=== PATIENT | female | born 1965 | race Caucasian/White ===

== ENCOUNTER 2017-06-09 11:00 | Inpatient (IN) | payer OTHER ==
[2017-06-13 08:40] VITALS: BMI 51.7
[2017-06-14] MEDS ORDERED: DEXAMETHASONE SOD PHOSPHATE/PF 10 MG/ML SDV ONE (10:30)
[2017-06-14] MEDS ORDERED: BUPIVACAINE HCL/PF 0.25% (2.5MG/ML) 10 ML VIAL ONE (10:30)
[2017-06-14] MEDS ORDERED: MIDAZOLAM HCL 2 MG/2 ML SINGLE DOSE VIAL ONE ×2 (10:31)
[2017-06-14] MEDS ORDERED: oxyCODONE HCL 5 MG TABLET PO PRN ×2 (10:59)
[2017-06-14] MEDS ORDERED: ONDANSETRON 4 MG/2 ML VIAL IVPUSH PRN (10:59)
[2017-06-14] MEDS ORDERED: LACTATED RINGERS SOLUTION 1,000 ML IV SCH (11:00)
--- NOTE | 2017-06-14 11:21 | HP ---
History & Physical Update - History History: No Change - Physical Physical: No Change - Assessment Assessment: No Change - Plan Plan: No Change (Laparoscopic possible open vertical sleeve gastrectomy, possible liver biopsy, upper endoscopy)
[2017-06-14] MEDS ORDERED: fentaNYL CITRATE 250 MCG/5 ML VIAL ONE ×2 (12:07→12:54)
[2017-06-14] MEDS ORDERED: ROCURONIUM BROMIDE 50 MG/5 ML VIAL ONE (12:08)
[2017-06-14] MEDS ORDERED: PROPOFOL 20 ML ONE (12:08)
[2017-06-14] MEDS ORDERED: ceFAZolin SODIUM 1 GM VIAL ONE (12:17)
[2017-06-14] MEDS ORDERED: DEXAMETHASONE SOD PHOSPHATE 4 MG/1 ML VIAL ONE (12:17)
[2017-06-14] MEDS ORDERED: ceFAZolin SODIUM 1 GM VIAL IVPB ONE (12:19)
[2017-06-14] MEDS ORDERED: NEOSTIGMINE METHYLSULFATE 0.5 MG/ML - 10 ML MDV ONE (13:44)
[2017-06-14] MEDS ORDERED: GLYCOPYRROLATE 0.2 MG/1 ML VIAL ONE ×2 (13:45→13:46)
[2017-06-14] MEDS ORDERED: BUPIVACAINE HCL/PF 0.5% (5MG/ML) 10 ML VIAL IJ ONE ×2 (13:58)
--- NOTE | 2017-06-14 14:11 | OP ---
Operative Note - Note: Operative Date: 06/14/17 Pre-Operative Diagnosis: Morbid obesity Operation: Laparoscopic vertical sleeve gastrectomy, wedge liver biopsy, EGD Post-Operative Diagnosis: Other (Morbid obesity, hepatomegaly) Surgeon: Fahad Ordaz Jackhammer Operator: Michelle Benitez Anesthesia: General Specimens Removed: Greater curvature of stomach. Liver biopsy Estimated Blood Loss (mls): 30 Drains & Tubes with Location: 36 Fr bougie Operative Report Dictated: Yes
[2017-06-14] MEDS ORDERED: SODIUM CHLORIDE 1,000 ML IV SCH (14:15)
--- NOTE | 2017-06-14 14:23 | HP ---
Admitting History and Physical - Admission Chief Complaint: Morbid obesity History Source: Patient Limitations to Obtaining History: No Limitations - Past Medical History Cardiovascular: Yes: HTN Gastrointestinal: Yes: Other (Morbid obesity) ...LMP: 05/23/17 Endocrine: Yes: Diabetes Mellitus - Smoking History Smoking history: Former smoker Have you smoked in the past 12 months: No Aproximately how many cigarettes per day: 40 If you are a former smoker, when did you quit?: 1999 - Alcohol/Substance Use Hx Alcohol Use: Yes (RARE) Home Medications - Allergies Allergies/Adverse Reactions: Allergies Allergy/AdvReac Type Severity Reaction Status Date / Time No Known Allergies Allergy Unverified 01/31/14 09:02 - Home Medications Home Medications: Ambulatory Orders Cholecalciferol (Vitamin D3) [Vitamin D3] 2,000 unit PO DAILY capsule 03/09/15 Clonazepam [Klonopin] 1 mg PO PRN PRN tablet 12/24/16 Acetaminophen [Tylenol] 325 mg PO PRN 06/13/17 Famotidine [Pepcid] 20 mg PO BID #60 tablet 06/14/17 Oxycodone HCl/Acetaminophen [Percocet 5-325 mg Tablet] 1 - 2 tab PO Q6H #28 tab MDD 4 06/14/17 Family Disease History - Family Disease History Family History: Unremarkable Review of Systems - Review of Systems Constitutional: denies: Chills, Fever Cardiovascular: reports: No Symptoms Respiratory: reports: No Symptoms Gastrointestinal: reports: No Symptoms Neurological: denies: Change in LOC Pain Intensity: 0 Physical Examination Vital Signs: Vital Signs Temperature 97.9 F 06/14/17 10:44 Pulse Rate 90 06/14/17 10:44 Respiratory Rate 20 06/14/17 10:44 Blood Pressure 117/64 06/14/17 10:44 O2 Sat by Pulse Oximetry (%) 95 06/14/17 10:44 Constitutional: Yes: Calm Neck: Yes: WNL Cardiovascular: Yes: WNL Respiratory: Yes: Regular Gastrointestinal: Yes: Soft, Abdomen, Obese Problem List - Problems (1) Body mass index (BMI) of 50.0 to 59.9 in adult Code(s): Z68.43 - BODY MASS INDEX (BMI) 50-59.9 , ADULT (2) Morbid obesity due to excess calories Code(s): E66.01 - MORBID (SEVERE) OBESITY DUE TO EXCESS CALORIES Assessment/Plan Laparoscopic possible open vertical sleeve gastrectomy, posisble liver biopsy, EGD
--- NOTE | 2017-06-14 14:47 | SURG ---
Surgery Director Internal Audit Note Director Internal Audit: Michelle Benitez PA-C Date of Service: 06/14/17 Diagnosis: morbid obesity Procedure: Laparoscopic vertical sleeve gastrectomy, wedge liver biopsy, EGD I was present for the entirety of the operative procedure. For further detail, please refer to operative report. Visit type - Case Type Case Type: Scheduled Admission - Emergency Emergency Visit: No - New patient This patient is new to me today: Yes Date on this admission: 06/14/17
[2017-06-14] MEDS ORDERED: FAMOTIDINE 20 MG PREMIXED IVPB IVPB ONE (14:50)
[2017-06-14] MEDS ORDERED: METOCLOPRAMIDE HCL INJECTION 10 MG/2 ML VIAL IVPUSH ONE (15:05)
[2017-06-14 15:38] LABS: HEMATOCRIT 42.3 % (32.4-45.2); HEMOGLOBIN 14.4 GM/dL (10.7-15.3); MCHC 33.9 g/dl (32.0-36.0); MEAN CELL VOLUME 91.5 fl (80-96); MEAN PLT VOLUME 9.4 fl (7.5-11.1); PLATELET COUNT 232 K/MM3 (134-434); RBC 4.63 M/mm3 (3.60-5.2); RDW 13.4 % (11.6-15.6); WHITE BLOOD COUNT 10.6 K/mm3 (4.0-10.0)
[2017-06-14] MEDS ORDERED: ACETAMINOPHEN 1000 MG/100 ML VIAL (NON FORMULARY) IVPB ONE (15:43)
[2017-06-14] MEDS ORDERED: ONDANSETRON 4 MG/2 ML VIAL IVPUSH ONE (15:44)
[2017-06-14 15:59] LABS: ALBUMIN 3.9 g/dl (3.4-5.0); ANION GAP 15 (8-16); BILIRUBIN,TOTAL 0.9 mg/dL (0.2-1.0); BLOOD UREA NITROGEN 12 mg/dL (7-18); CALCIUM 8.4 mg/dL (8.5-10.1); CHLORIDE 103 mmol/L (98-107); CO2 20 mmol/L (21-32); CREATININE 1.3 mg/dL (0.55-1.02); GLUCOSE,RANDOM 129 mg/dL (74-106); SGPT/ALT 39 U/L (12-78); SODIUM 138 mmol/L (136-145); TOT PROT 7.5 g/dl (6.4-8.2)
[2017-06-14 16:00] LABS: ALK PHOS 49 U/L (45-117)
[2017-06-14 16:45] LABS: POTASSIUM 4.3 mmol/L (3.5-5.1); SGOT/AST 45 U/L (15-37)
[2017-06-14] MEDS: METOCLOPRAMIDE HCL INJECTION 10 MG/2 ML VIAL IVPUSH SCH ×2 (17:11→21:06)
[2017-06-14] MEDS: ACETAMINOPHEN 1000 MG/100 ML VIAL (NON FORMULARY) IVPB SCH ×2 (17:11→22:47)
[2017-06-14] MEDS: ONDANSETRON 4 MG/2 ML VIAL IVPUSH SCH ×3 (17:12→22:43)
--- NOTE | 2017-06-14 17:28 | SPEC ---
DATE OF OPERATION: 06/14/2017 SURGEON: Deedee Ordaz M.D. METER AND REGULATOR SHOP SUPERVISOR: Candi Ham PREOPERATIVE DIAGNOSIS: 1. Morbid obesity. 2. Body mass index 51.7. 3. Diabetes mellitus. 4. Depression. 5. Hypertension. POSTOPERATIVE DIAGNOSIS: 1. Morbid obesity. 2. Body mass index 51.7. 3. Diabetes mellitus. 4. Depression. 5. Hypertension. 6. Hepatomegaly. PROCEDURES: 1. Laparoscopic vertical sleeve gastrectomy. 2. Laparoscopic wedge liver biopsy. 3. Esophagogastroduodenoscopy/upper endoscopy. SPECIMENS: 1. Greater curvature of the stomach. 2. Wedge liver biopsy. ESTIMATED BLOOD LOSS: 30 mL. DRAINS: None. ANESTHESIA: GET. BOUGIE SIZE: 36 Belarusian REASON FOR THE PROCEDURE: This is a 52-year-old female presents for weight loss options. After describing different options, she has decided to proceed with a laparoscopic, possible open vertical sleeve gastrectomy, possible liver biopsy and upper endoscopy. RISKS AND BENEFITS: After describing the different options for weight loss management, the patient decided to proceed with a laparoscopic, possible open vertical sleeve gastrectomy. The patient was seen by the respective subspecialties and cleared for surgery. The risks and benefits of the procedure were explained. These included bleeding, infection, hernia, FL, DVT, PE, injury to surrounding structures including the liver, colon, bowel, spleen, esophagus, vessel injury, nerve injury, weight regain, gastric leak, staple line leak, sleeve leak, obstruction, vitamin deficiency, hair loss and as some of the possible complications. The patient understood and signed informed consent. DESCRIPTION OF PROCEDURE: The patient was placed supine on the operating room table. The patient underwent general endotracheal intubation. A Duckworth catheter was inserted. The arms were brought out at 90 degrees and secured. A footboard was placed and the legs were secured laterally with padding. The abdomen was prepped and draped in the usual sterile fashion. A timeout was performed. An incision was made in the left upper quadrant and a Veress needle inserted. Pneumoperitoneum was established. Subsequently, the Veress needle was removed and a 12-mm trocar was placed. The laparoscopic camera was then inserted and inspection of the abdominal cavity was performed. An incision was then made in the supraumbilical area and a 15-mm trocar was placed under direct visualization. A 5-mm trocar was then placed in the right upper quadrant and a 5-mm trocar was placed below the left subcostal margin. A stab wound was made in the subxiphoid area and a Harini clamp inserted and removed to dilate the tract. A Emmy liver retractor was inserted. The post was secured at the bedside by the nursing staff. The patient was placed in steep reverse Trendelenburg position and the Emmy liver retractor was used to secure the liver towards the anterior abdominal wall. The pylorus was identified and 6 cm proximal to it, the lesser sac was entered using the LigaSure device. All lateral attachments to the greater curvature of the stomach, including the short gastric vessels, were ligated using the LigaSure device toward the gastrosplenic and gastrophrenic ligaments. Once this was done in its entirety, it was confirmed that all tubes within the nasal or oropharyngeal cavity, including a temperature probe, was removed by Anesthesia. The bougie was then inserted by Anesthesia. Transection of the stomach was then begun staying adjacent to the bougie but away from the angularis. Transection of the stomach was performed near the portion of the stomach where the lesser sac was entered. Two laparoscopic Endo-HA black melania were used at this location. Laparoscopic Endo HA purple staple loads were then used for the remainder of the transection until the greater curvature of the stomach was fully transected. This was done staying close to the bougie. Care was taken to stay away from the angle of His cephalad. The staple line was then inspected. Hemostasis was identified. A leak test was then performed. It was clamped distally to the staple line. Irrigation solution was placed in the left upper quadrant and air was insufflated by Anesthesia into the sleeve. No leaks were identified. No obstruction was identified. This was done through the entirety of the staple line. At this point, the irrigation solution was suctioned and again, hemostasis was noted. A wedge liver biopsy was then performed. The left lobe of the liver was identified and a portion of the edge was grasped. Using electrocautery, a wedge of the liver was excised. This was removed and sent off the field as specimen. Hemostasis at the site of the wedge liver biopsy was attained using electrocautery. The 15-mm supraumbilical trocar was then removed and the greater curvature specimen removed from the site using a sponge stick zamora. The specimen was inspected and a Veress needle inserted. The specimen insufflated adequately and no leak was identified. The staple line was noted to be intact. A Viraj-Luly device was then used to temporarily close the fascia with a 0 Vicryl suture at the site. The 15-mm trocar was then reinserted and the 12-mm trocar in the left upper quadrant was removed. The fascia at this site was then closed using the Viraj-Luly device with a 0 Vicryl suture. Again, hemostasis was noted. The Emmy liver retractor was then removed under direct visualization. Pneumoperitoneum was desufflated and the fascial sutures were secured. Hemostasis was noted at all incision sites and Marcaine was injected at all incision sites. All incision sites were closed using 4-0 Biosyn. Sterile dressings were applied. The patient tolerated the procedure well and was transferred to the recovery room in stable condition with the Duckworth catheter intact. The patient was transferred to telemetry for further monitoring. ADDENDUM: An EGD/upper endoscopy was performed to further evaluate for leak and/or obstruction. The endoscope was placed inside the patient's mouth, and the entirety of the esophagus, GE junction, gastric pouch, and staple line were inspected. Hemostasis was noted. No leak or obstruction was noted. The stomach was suctioned and endoscope removed. Patient tolerated the procedure well, transferred to recovery room in stable condition. DEEDEE ORDAZ M.D. [id number]
[2017-06-14] MEDS: INSULIN SLIDING SCALE (NOVOLOG) 1 VIAL SQ SCH (17:38)
[2017-06-14] MEDS: MORPHINE SULFATE 10 MG/1 ML *VIAL IVPUSH PRN ×2 (17:45→22:15)
[2017-06-14] MEDS ORDERED: PT OWN MED DRAWER 7, Y5N ONE (21:02)
[2017-06-14] MEDS: ENOXAPARIN NA (PORCINE) 40 MG/0.4 ML DISP.SYRIN SQ SCH (21:06)
[2017-06-14] MEDS: FAMOTIDINE 20 MG/50 ML IVPB 20 MG/50 ML MG IVPB SCH (21:08)
[2017-06-15] MEDS: MORPHINE SULFATE 10 MG/1 ML *VIAL IVPUSH PRN ×2 (03:02→21:08)
[2017-06-15] MEDS: ONDANSETRON 4 MG/2 ML VIAL IVPUSH SCH ×6 (03:02→22:08)
[2017-06-15] MEDS: METOCLOPRAMIDE HCL INJECTION 10 MG/2 ML VIAL IVPUSH SCH ×4 (03:02→21:07)
[2017-06-15] MEDS: ACETAMINOPHEN 1000 MG/100 ML VIAL (NON FORMULARY) IVPB SCH (06:56)
[2017-06-15] MEDS: INSULIN SLIDING SCALE (NOVOLOG) 1 VIAL SQ SCH ×3 (07:02→16:21)
[2017-06-15 08:13] LABS: HEMATOCRIT 38.7 % (32.4-45.2); HEMOGLOBIN 13.1 GM/dL (10.7-15.3); MCHC 33.8 g/dl (32.0-36.0); MEAN CELL VOLUME 91.9 fl (80-96); MEAN PLT VOLUME 9.7 fl (7.5-11.1); PLATELET COUNT 199 K/MM3 (134-434); RBC 4.22 M/mm3 (3.60-5.2); RDW 13.2 % (11.6-15.6); WHITE BLOOD COUNT 11.7 K/mm3 (4.0-10.0)
[2017-06-15 08:35] LABS: CHLORIDE 106 mmol/L (98-107); POTASSIUM 4.4 mmol/L (3.5-5.1); SODIUM 140 mmol/L (136-145)
[2017-06-15 08:44] LABS: ALBUMIN 3.2 g/dl (3.4-5.0); ALK PHOS 40 U/L (45-117); ANION GAP 15 (8-16); BILIRUBIN,TOTAL 0.9 mg/dL (0.2-1.0); BLOOD UREA NITROGEN 11 mg/dL (7-18); CALCIUM 8.2 mg/dL (8.5-10.1); CO2 19 mmol/L (21-32); CREATININE 0.9 mg/dL (0.55-1.02); GLUCOSE,RANDOM 93 mg/dL (74-106); SGOT/AST 45 U/L (15-37); SGPT/ALT 41 U/L (12-78); TOT PROT 6.6 g/dl (6.4-8.2)
--- NOTE | 2017-06-15 09:08 | PN ---
Progress Note (short form) - Note Progress Note: POD#1 Pt states that she is feeling much better. Yesterday she had some pain with spitting up blood. This has improved and she had one episode of coughing up a little blood this am. Pain is improved. Pt oob and abmulated to the restroom several times. Vital Signs Period Temp Pulse Resp BP Sys/Verdin Pulse Ox Last 24 Hr 97.9 F-98.4 F 18-94 16-20 114-156/64-100 91-97 GEN: Appears comfortable CV: RRR Lungs: CTA b/l ABD: soft, non-distended, inc tenderness. Inc c/d/i LE: no calf swelling or tenderness noted. SCDs in place b/l CBC, BMP 18 06:30 18 06:30 Laboratory Tests 18 06/14/18 06/14/17 15:00 15:00 17:34 WBC 10.6 H Hgb 14.4 Hct 42.3 Plt Count 232 Sodium 138 Potassium 4.3 Chloride 103 Carbon Dioxide 20 L Anion Gap 15 BUN 12 Creatinine 1.3 H POC Glucometer 160 06/15/17 07:01 WBC Hgb Hct Plt Count Sodium Potassium Chloride Carbon Dioxide Anion Gap BUN Creatinine POC Glucometer 102 A/P; 52 yo female s/p lap vertical sleeve, POD#1 Plan for UGI series today Continue OOB/ambulate DVT ppx with SCDs <Cathy Bowens - Last Filed: 06/15/17 09:08> - Note Progress Note: Agree POD 1 Pain controlled Abd soft UGI: no leak/obstruction Clears Ambulate <Fahad Ordaz - Last Filed: 06/15/17 15:47> Problem List - Problems (1) Body mass index (BMI) of 50.0 to 59.9 in adult Code(s): Z68.43 - BODY MASS INDEX (BMI) 50-59.9 , ADULT (2) Morbid obesity due to excess calories Code(s): E66.01 - MORBID (SEVERE) OBESITY DUE TO EXCESS CALORIES <Fahad Ordaz - Last Filed: 06/15/17 15:47>
[2017-06-15] MEDS: FAMOTIDINE 20 MG/50 ML IVPB 20 MG/50 ML MG IVPB SCH ×2 (09:32→21:07)
[2017-06-15] MEDS: ENOXAPARIN NA (PORCINE) 40 MG/0.4 ML DISP.SYRIN SQ SCH ×2 (09:33→21:07)
--- NOTE | 2017-06-15 12:43 | PATH ---
Surgical Pathology Report Patient Name: REJI MON [facility]. Rec. #: [id number] /Age/Gender: 1965 (Age: 52) / F Account: [id number] Location: 4 SO PEDS/ADOL Taken: 06/14/2017 Received: 06/14/2017 Reported: 06/15/2017 Physicians: Fahad Ordaz M.D. Specimen(s) Received A: GREATER CURVATURE STOMACH B: LIVER BIOPSY Clinical History Morbid obesity (severe) due to excess calories Final Diagnosis A. STOMACH, GREATER CURVATURE, LAPAROSCOPIC VERTICAL SLEEVE GASTRECTOMY: PORTION OF STOMACH WITH MILD CHRONIC GASTRITIS. IMMUNOHISTOCHEMICAL STAIN FOR H. PYLORI IS NEGATIVE. B. LIVER, BIOPSY: LIVER PARENCHYMA WITH MODERATE STEATOSIS (~50%). NO INCREASE IN IRON AND FIBROSIS ON PERFORMED SPECIAL STAINS (IRON AND TRICHROME). Electronically Signed Marcie Vallejo M.D. Gross Description A. Received in formalin, labeled "greater curvature of stomach," is a 90 gram, 18.0 x 3.3 x 3.0 cm. portion of stomach with a stapled margin of resection. The serosa is gil-howard with minimal attached fat. The mucosa is gil-pink with normal folds. No mucosal masses are identified. Master Planner sections are submitted in one cassette. B. Received in formalin labeled "liver biopsy," is a 2.1 x 1.0 x 0.9 cm gil, irregular portion of soft tissue, consistent with a liver biopsy. The specimen is sectioned and entirely submitted in one cassette. /06/14/2017 saudi06/14/2017
[2017-06-15] MEDS: SODIUM CHLORIDE 1,000 ML IV SCH (14:55)
[2017-06-16] MEDS: ONDANSETRON 4 MG/2 ML VIAL IVPUSH SCH ×4 (01:50→14:07)
[2017-06-16] MEDS: METOCLOPRAMIDE HCL INJECTION 10 MG/2 ML VIAL IVPUSH SCH ×3 (02:36→14:50)
[2017-06-16] MEDS: oxyCODONE HCL 5 MG TABLET PO PRN ×3 (03:07→12:36)
[2017-06-16] MEDS: INSULIN SLIDING SCALE (NOVOLOG) 1 VIAL SQ SCH ×2 (06:34→12:00)
[2017-06-16] MEDS: SODIUM CHLORIDE 1,000 ML IV SCH ×2 (06:39→12:37)
[2017-06-16] MEDS: FAMOTIDINE 20 MG/50 ML IVPB 20 MG/50 ML MG IVPB SCH (09:24)
[2017-06-16] MEDS: ENOXAPARIN NA (PORCINE) 40 MG/0.4 ML DISP.SYRIN SQ SCH (09:24)
[2017-06-16] MEDS ORDERED: amLODIPine BESYLATE 5 MG TABLET (FP) PO SCH (12:15)
[2017-06-16 13:32] VITALS: BP 122/54; PULSE 78; TEMP 98.2
[2017-06-16] MEDS ORDERED: metFORMIN HCL 500 MG TABLET (FP) PO SCH (16:30)
== END 2017-06-16 15:09 | disposition home or self-care (01) | DRG 403 ==
LOC: EDSTATUS 11:00 → JSAMEDAYSX 06-14 09:57 → J4S 06-14 16:56
PROVIDERS: ADMIT Surgery; ATTEND Surgery
PROC: 0DB64Z3 Excision of Stomach, Percutaneous Endoscopic Approach, Vertical (ICD-10-PCS; principal; 2017-06-14 12:00)
PROC: 0DJ08ZZ Inspection of Upper Intestinal Tract, Via Natural or Artificial Opening Endoscopic (ICD-10-PCS; 2017-06-14 12:00)
PROC: 0FB24ZX Excision of Left Lobe Liver, Percutaneous Endoscopic Approach, Diagnostic (ICD-10-PCS; 2017-06-14 12:00)
DX: E66.01 Morbid (severe) obesity due to excess calories (principal); Z68.43 Body mass index [BMI] 50.0-59.9, adult; E11.9 Type 2 diabetes mellitus without complications; I10 Essential (primary) hypertension; F32.9 Major depressive disorder, single episode, unspecified; R16.0 Hepatomegaly, not elsewhere classified
CPT/HCPCS: 36415; 74241-TC-FY; 80053; 82962; 84703; 85027; 86850; 86900; 86901; 88307-TC; 94010; 94760; J0131; J7030

== ENCOUNTER 2017-12-20 06:18 | Day surgery (SDC) | payer OTHER ==
[2017-11-28 12:55] VITALS: BMI 43.8
[2017-12-20] MEDS ORDERED: TROPICAMIDE 1% OPHTH SOLN 15 ML BOTTLE ONE (07:06)
[2017-12-20] MEDS ORDERED: GENTAMICIN SULFATE 0.3% OPHTHALMIC (EYE DROPS) 5ML BOTTLE ONE (07:06)
[2017-12-20] MEDS ORDERED: PHENYLEPHRINE 2.5% OPHTH SOLN 15 ML BOTTLE ONE (07:06)
[2017-12-20] MEDS ORDERED: KETOROLAC TROMETHAMINE 0.5% EYE DROP 1 DROP DROPS ONE (07:06)
[2017-12-20] MEDS ORDERED: CYCLOPENTOLATE HCL 1% OPHTH SOLN 2 ML BOTTLE ONE (07:06)
[2017-12-20] MEDS ORDERED: TROPICAMIDE 1% OPHTH SOLN 15 ML BOTTLE OD ONE ×5 (07:15→07:35)
[2017-12-20] MEDS ORDERED: PHENYLEPHRINE 2.5% OPHTH SOLN 15 ML BOTTLE OD ONE ×5 (07:15→07:35)
[2017-12-20] MEDS: CYCLOPENTOLATE HCL 1% OPHTH SOLN 2 ML BOTTLE OD SCH ×5 (07:15→07:35)
[2017-12-20] MEDS ORDERED: KETOROLAC TROMETHAMINE 0.5% EYE DROP 1 DROP DROPS OD ONE ×5 (07:15→07:35)
[2017-12-20] MEDS ORDERED: GENTAMICIN SULFATE 0.3% OPHTHALMIC (EYE DROPS) 5ML BOTTLE OD ONE ×4 (07:20→07:35)
[2017-12-20] MEDS ORDERED: BACITRACIN/POLYMYXIN OPH OINT 3.5 GM TUBE ONE (07:25)
[2017-12-20] MEDS ORDERED: BETAXOLOL HCL 0.25% OPHTHALMIC 10 ML DROPSBTL ONE (07:25)
[2017-12-20] MEDS ORDERED: EPI-SHUGARCAINE (EPINEPHRINE 0.025% & LIDOCAINE-PF 0.75%) 4ML ONE ×2 (07:26→07:39)
[2017-12-20] MEDS ORDERED: NEO/POLYMYX B SULF/DEXAMETH OPHTHALMIC 5ML BOTTLE ONE (07:26)
[2017-12-20] MEDS ORDERED: POVIDONE-IODINE 5% OPHTHALMIC PREP 30 ML SOLUTION ONE (07:26)
[2017-12-20] MEDS ORDERED: ACETYLCHOLINE 1:100 INTRA-OCUL 20 MG/2 ML KIT ONE (07:26)
[2017-12-20] MEDS ORDERED: TETRACAINE 0.5% OPHTH SOLN 2 ML BOTTLE ONE (07:26)
[2017-12-20] MEDS ORDERED: EPINEPHrine/PF 1 MG/1 ML (1:1,000) AMPULE ONE ×2 (07:27→07:31)
[2017-12-20] MEDS ORDERED: LIDOCAINE HCL 4% PRESERVE-FREE 5 ML AMP ONE (07:39)
[2017-12-20] MEDS ORDERED: TROPICAMIDE 1% OPHTH SOLN 15 ML BOTTLE OD SCH (08:00)
[2017-12-20] MEDS ORDERED: GENTAMICIN SULFATE 0.3% OPHTHALMIC (EYE DROPS) 5ML BOTTLE OD SCH (08:00)
[2017-12-20] MEDS ORDERED: PHENYLEPHRINE 2.5% OPHTH SOLN 15 ML BOTTLE OD SCH (08:00)
[2017-12-20] MEDS ORDERED: KETOROLAC TROMETHAMINE 0.5% EYE DROP 1 DROP DROPS OD SCH (08:00)
[2017-12-20] MEDS ORDERED: SUCCINYLCHOLINE CHLORIDE 200 MG/10 ML VIAL ONE (08:18)
[2017-12-20] MEDS ORDERED: MIDAZOLAM HCL 2 MG/2 ML SINGLE DOSE VIAL ONE (08:18)
[2017-12-20] MEDS ORDERED: ACETAMINOPHEN 325 MG TABLET (FP) PO PRN ×2 (09:03→09:17)
[2017-12-20] MEDS ORDERED: ONDANSETRON 4 MG/2 ML VIAL IVPUSH PRN (09:03)
[2017-12-20] MEDS ORDERED: LACTATED RINGERS SOLUTION 1,000 ML IV SCH (09:15)
[2017-12-20 09:55] VITALS: TEMP 97.7
--- NOTE | 2017-12-20 09:59 | OP ---
DATE OF OPERATION: 12/20/2017 PREOPERATIVE DIAGNOSIS: Cataract, right eye. POSTOPERATIVE DIAGNOSIS: Cataract, right eye. PROCEDURE: Cataract extraction via phacoemulsification with insertion of posterior chamber lens implant, right eye, Toric lens. ANESTHESIA: Topical with sedation. SURGEON: Carroll Herrera MD FIBERGLASS FINISHER: Janet Kumar MD COMPLICATIONS: None. SPECIMENS: None. ESTIMATED BLOOD LOSS: Less than 1 mL. PROCEDURE: The patient was identified in the holding area. After all risks, benefits, and alternatives were explained to the patient and informed consent was obtained, the patient then entered the operating room on an eye stretcher. After a formal timeout was performed, topical tetracaine eye drops were instilled onto the right eye. The patient then was instructed to sit up and using a leveling marker, the cardinal and axes for the Toric lens were marked on the cornea. The patient was then instructed to lay back down. Then, the right eye was prepped and draped in the usual sterile fashion. An eyelid speculum was placed beneath the eyelids of the right eye. Then, the axis of the stigmatism was marked, noted to be 105 degrees. Then, once the axis of the stigmatism was marked with the marking pen and Toric markers, a superotemporal incision was created using a 15-degree blade. Then, intracameral preservative-free epinephrine and preservative-free lidocaine were then performed, and then Viscoelastic was injected into the anterior chamber. A 2.4 mm keratome blade was then used to make an infratemporal incision. A 360-degree continuous curvilinear capsulorhexis was then created using bent cystotome and Utrata forceps. Hydrodissection was performed using balanced saline solution on a cannula. Phacoemulsification was introduced to disassemble and remove the nucleus in its entirety. Irrigation/aspiration was then used to remove any remaining cortical material from the eye. The capsular bag was reformed using viscoelastic. An Dakotah model [id number] with a power of 10.0 diopters, serial number [id number] was inspected and found to be defect-free and injected into the capsular bag. Irrigation/aspiration was then used to remove any remaining viscoelastic from the eye. The Toric lens was then rotated so that the axis of the stigmatism on the optic was aligned with 105-degree axis on the cornea. Then intracameral injections of Miochol and Miostat were then administered, and the pupil came down and was round. All wounds were hydrated with balanced saline solution and noted to be watertight. The lens was perfectly centered in the capsular bag with absolutely no rotation at all. There was a red reflex present. The anterior chamber was deep, and the eye had an adequate pressure. Topical antibiotic eye drops and ointment were then administered to the right eye. The eyelid speculum was removed from the right eye. The right eye was shielded. The patient tolerated the procedure well and left the operating room in stable condition to follow up in the eye clinic tomorrow morning at 9:00. CARROLL HERRERA M.D. [id number]
[2017-12-20 10:10] VITALS: BP 115/90; PULSE 74
== END 2017-12-20 10:05 | disposition home or self-care (01) ==
LOC: FASU 06:18
PROVIDERS: ATTEND Ophthalmology
PROC: 08RJ3JZ Replacement of Right Lens with Synthetic Substitute, Percutaneous Approach (ICD-10-PCS; principal; 2017-12-20 08:00)
DX: H26.9 Unspecified cataract (principal)
CPT/HCPCS: 36415; 82962; 84703

== ENCOUNTER 2018-03-21 06:59 | Day surgery (SDC) | payer OTHER ==
[2018-03-17 09:28] VITALS: BMI 43.8
[2018-03-21] MEDS ORDERED: TROPICAMIDE 1% OPHTH SOLN 15 ML BOTTLE ONE (07:13)
[2018-03-21] MEDS: PHENYLEPHRINE 2.5% OPHTH SOLN 15 ML BOTTLE OS SCH ×5 (07:20→07:40)
[2018-03-21] MEDS: CYCLOPENTOLATE HCL 1% OPHTH SOLN 2 ML BOTTLE OS SCH ×5 (07:20→07:40)
[2018-03-21] MEDS: KETOROLAC TROMETHAMINE 0.5% EYE DROP 1 DROP DROPS OS SCH ×4 (07:20→07:40)
[2018-03-21] MEDS: TROPICAMIDE 1% OPHTH SOLN 15 ML BOTTLE OS SCH ×5 (07:20→07:40)
[2018-03-21] MEDS: GENTAMICIN SULFATE 0.3% OPHTHALMIC (EYE DROPS) 5ML BOTTLE OS SCH ×5 (07:20→07:40)
[2018-03-21] MEDS ORDERED: EPI-SHUGARCAINE (EPINEPHRINE 0.025% & LIDOCAINE-PF 0.75%) 4ML ONE (07:22)
[2018-03-21] MEDS ORDERED: BETAXOLOL HCL 0.25% OPHTHALMIC 10 ML DROPSBTL ONE (07:22)
[2018-03-21] MEDS ORDERED: BACITRACIN/POLYMYXIN OPH OINT 3.5 GM TUBE ONE (07:22)
[2018-03-21] MEDS ORDERED: BSS (NA/CA/MG/K) BALANCED SALT SOLUTION OPHTH SOLN 15 ML BOTTLE ONE (07:23)
[2018-03-21] MEDS ORDERED: POVIDONE-IODINE 5% OPHTHALMIC PREP 30 ML SOLUTION ONE (07:23)
[2018-03-21] MEDS ORDERED: EPINEPHrine/PF 1 MG/1 ML (1:1,000) AMPULE ONE (07:23)
[2018-03-21] MEDS ORDERED: TETRACAINE 0.5% OPHTH SOLN 2 ML BOTTLE ONE (07:23)
[2018-03-21] MEDS ORDERED: ACETYLCHOLINE 1:100 INTRA-OCUL 20 MG/2 ML KIT ONE (07:23)
[2018-03-21] MEDS ORDERED: NEO/POLYMYX B SULF/DEXAMETH OPHTHALMIC 5ML BOTTLE ONE (07:24)
[2018-03-21] MEDS ORDERED: MIDAZOLAM HCL 2 MG/2 ML SINGLE DOSE VIAL ONE (07:59)
[2018-03-21] MEDS ORDERED: ACETAMINOPHEN 325 MG TABLET (FP) PO PRN (09:20)
[2018-03-21] MEDS ORDERED: ACETAMINOPHEN 325 MG TABLET (FP) ONE (09:28)
[2018-03-21 10:16] VITALS: TEMP 98.1
[2018-03-21 10:23] VITALS: BP 136/80; PULSE 86
--- NOTE | 2018-03-29 11:26 | OP ---
DATE OF OPERATION: 03/21/2018 AGE: [age] years old. SEX: Female. PREOPERATIVE DIAGNOSIS: Cataract, left eye. POSTOPERATIVE DIAGNOSIS: Cataract, left eye. PROCEDURE: Cataract extraction via phacoemulsification with insertion of posterior chamber lens implant, left eye. SURGEON: Carroll Herrera MD THERMITE WELDER: Janet Kumar MD ANESTHESIA: Topical with sedation. ESTIMATED BLOOD LOSS: Less than 1 mL. COMPLICATIONS: None. SPECIMENS: None. DESCRIPTION OF PROCEDURE: The patient was identified in the holding area. After all risks, benefits, and alternatives were explained to the patient, informed consent was obtained. The left eye was marked with a marking pen. Patient then entered the operating room on an eye stretcher. After a formal timeout was performed, topical tetracaine eye drops were instilled into the left eye. The left eye was prepped and draped in the usual sterile fashion. An eyelid speculum was placed beneath the eyelids of the left eye. An inferotemporal paracentesis incision was created using a 15-degree blade. Topical preservative-free epinephrine and preservative-free lidocaine were then injected into the anterior chamber. Viscoelastic was then injected in the anterior chamber. A 2.4-mm keratome blade was then used to make a superotemporal incision. A 360-degree, continuous curvilinear capsulorrhexis was then created using bent cystotome and Utrata forceps. Hydrodissection was performed using balanced saline solution on a cannula. Phacoemulsification was introduced to disassemble and remove the nucleus in its entirety. Irrigation/aspiration was then used to remove any remaining cortical material from the eye. Capsular bag was reformed using viscoelastic. An Dakotah model [id number] with a power of 8.5 diopters, serial number [id number] was inspected and found to be defect free and injected into the capsular bag. Irrigation/aspiration was then used to remove any remaining viscoelastic from the eye. The balanced saline solution was used to reform the anterior chamber. Topical intracameral injections of Miochol and Miostat were then administered, and the pupil came down and was round. All wounds were hydrated with balanced saline solution, noted to be watertight. There was a red reflex present. The anterior chamber was deep. The eye had an adequate pressure, and the lens was perfectly centered in the capsular bag. Topical antibiotic eye drops and ointment were then administered to the left eye. The left eye was shielded. The patient tolerated the procedure well, left the operating room in stable condition to follow up in the eye clinic tomorrow morning at 9:00. CARROLL HERRERA M.D. [id number]
== END 2018-03-21 10:32 | disposition home or self-care (01) ==
LOC: FASU 06:59
PROVIDERS: ATTEND Ophthalmology
PROC: 08RK3JZ Replacement of Left Lens with Synthetic Substitute, Percutaneous Approach (ICD-10-PCS; principal; 2018-03-21 08:39)
DX: H26.9 Unspecified cataract (principal)
CPT/HCPCS: 82962; 84703; 87081

== ENCOUNTER 2018-12-17 08:59 | Emergency (ER) | payer OTHER ==
--- NOTE | 2018-12-17 09:04 | PDOC ---
History of Present Illness - General Chief Complaint: Pain Stated Complaint: RT KNEE PAIN Time Seen by Provider: 12/17/18 09:04 History Source: Patient - History of Present Illness Initial Comments: 12/17/18 09:32 Pt presents to the ED complaining of acute exacerbation of chronic R knee pain. States that she has been diagnosed with knee arthritis in the past, and has found relief by using a recumbent stepper. Her knee became acutely painful two weeks ago. She went to see Dr. Ramos and was xrayed and diagnosed with arthritis and treated with meloxicam three days ago. Presents today because the pain has not improved, but has gotten worse. Denies fever, nausea or vomiting, or erythema of the affected knee. Does get some relief by icing the knee. Past History - Past Medical History Allergies/Adverse Reactions: Allergies Allergy/AdvReac Type Severity Reaction Status Date / Time No Known Allergies Allergy Verified 12/17/18 09:00 Home Medications: Ambulatory Orders Metformin HCl [Glucophage] 500 mg PO DAILY 11/28/17 Lidocaine 5% Patch [Lidoderm -] 1 patch TP DAILY #30 patch 12/17/18 Meloxicam 15 mg PO DAILY 12/17/18 Naproxen Sodium [Aleve] 440 mg PO PRN PRN 12/17/18 Anemia: No Asthma: No Cancer: No Cardiac Disorders: No CVA: No COPD: No CHF: No Dementia: No Diabetes: Yes (PRE-DIABETES) GI Disorders: No Disorders: No HTN: Yes Hypercholesterolemia: No Liver Disease: No Seizures: No Thyroid Disease: No - Surgical History Abdominal Surgery: No Appendectomy: No Cardiac Surgery: No Cholecystectomy: No Lung Surgery: No Neurologic Surgery: No Orthopedic Surgery: No - Suicide/Smoking/Psychosocial Hx Smoking History: Former smoker Have you smoked in the past 12 months: No Number of Cigarettes Smoked Daily: 40 If you are a former smoker, when did you quit?: 1999 Hx Alcohol Use: Yes (RARE) Drug/Substance Use Hx: No Substance Use Type: Alcohol Hx Substance Use Treatment: No Review of Systems - Review of Systems Able to Perform ROS?: Yes Is the patient limited Belarusian proficient: No Constitutional: No: Symptoms Reported, See HPI, Chills, Diaphoresis, Fever, Loss of Appetite, Malaise, Night Sweats, Weakness, Weight Stable, Unintentional Wgt. Loss, Unexplained wgt Loss, Other HEENTM: No: Symptoms Reported, See HPI, Eye Pain, Blurred Vision, Tearing, Recent change in vision, Double Vision, Cataracts, Ear Pain, Ocular Prothesis, Ear Discharge, Nose Pain, Nose Congestion, Tinnitus, Nose Bleeding, Hearing Loss , Throat Pain, Throat Swelling, Mouth Pain, Dental Problems, Difficulty Swallowing, Mouth Swelling, Other Respiratory: No: Symptoms reported, See HPI, Cough, Orthopnea, Shortness of Breath, SOB with Exertion, SOB at Rest, Stridor, Wheezing, Productive cough, Hemoptysis, Other Cardiac (ROS): No: Symptoms Reported, See HPI, Chest Pain, Edema, Irregular Heart Rate, Lightheadedness, Palpitations, Syncope, Chest Tightness, Other ABD/GI: No: Symptoms Reported, See HPI, Abdominal Distended, Abd. Pain w/ defecation, Blood Streaked Bowels, Constipated, Diarrhea, Difficulty Swallowing , Nausea, Poor Appetite, Poor Fluid Intake, Rectal Bleeding, Vomiting, Indigestion, Abdominal cramping, Tarry Stools, Other : No: Symptoms Reported, See HPI, Burning, Dysuria, Discharge, Frequency, Flank Pain, Hematuria, Incontinence, Pain, Urgency, Testicular Mass, Testicular Swelling, Lesions, Testicular Pain, Other Musculoskeletal: Yes: Joint Pain Integumentary: No: Symptoms Reported, See HPI, Bruising, Change in Color, Change in Hair/Nails, Dryness, Erythema, Flushing, Lesions, Lumps, Pallor, Pruritus, Rash, Sweating, Other All Other Systems: Reviewed and Negative *Physical Exam - Physical Exam Comments: 12/17/18 09:40 gen: alert, NAD r knee: no swelling, erythema or tenderness. Full ROM. No joint instability. Able to weight bear and to ambulate with antalgic gait. Medical Decision Making - Medical Decision Making 12/17/18 09:41 Pt presents to the ED complaining of acute on chronic R knee pain. Patient has known history of degenerative arthritis. No signs or symptoms consistent with infection. No trauma. Patient offered xray, but declined as she has already xray that showed no acute findings in Dr. Thomas's office. Will treat pain with lidocaine patch. Patient has follow up next week with Dr. Ramos. Instructed to return to the ED for worsening symptoms. *DC/Admit/Observation/Transfer Diagnosis at time of Disposition: Arthritis of knee - Discharge Dispostion Disposition: HOME Condition at time of disposition: Good Decision to Admit order: No - Prescriptions Prescriptions: Lidocaine 5% Patch [Lidoderm -] 1 patch TP DAILY #30 patch - Referrals - Patient Instructions Printed Discharge Instructions: DI for Knee Pain Additional Instructions: you came to the ED because you have pain in the knee which is most likely caused by arthritis. You should keep your appointment with Dr. Ramos. I have prescribed a lidocaine patch, which should help with the pain. You should put it on the area that is the most painful and change it every day. Continue to take the meloxicam. Return to the ED for fever, severe pain, red hot tender swollen knee or leg. - Post Discharge Activity Forms/Work/School Notes: Back to Work
[2018-12-17] MEDS ORDERED: LIDOCAINE 5% TOPICAL PATCH TP ONE (09:26)
[2018-12-17] MEDS ORDERED: LIDOCAINE 5% TOPICAL PATCH ONE (09:31)
[2018-12-17 09:40] VITALS: BP 161/97; PULSE 76; TEMP 98.3; BMI 50.8
[2018-12-17] MEDS ORDERED: LIDOCAINE PATCH REMOVAL MC SCH (22:00)
== END 2018-12-17 09:39 | disposition home or self-care (01) ==
LOC: FER 08:59
DX: M13.861 Other specified arthritis, right knee (principal); Z87.891 Personal history of nicotine dependence; R73.03 Prediabetes; I10 Essential (primary) hypertension
CPT/HCPCS: 99282-25

== ENCOUNTER 2020-09-14 16:41 | Emergency (ER) | payer OTHER ==
[2020-09-14 17:03] VITALS: BMI 50.7
[2020-09-14] MEDS ORDERED: SODIUM CHLORIDE 0.9% 1000 ML INFUS.BAG IV ONE (17:04)
[2020-09-14] MEDS ORDERED: METOCLOPRAMIDE HCL INJECTION 10 MG/2 ML VIAL IVPUSH ONE (17:04)
[2020-09-14] MEDS ORDERED: ACETAMINOPHEN 1000 MG/100 ML VIAL (NON FORMULARY) IVPB ONE (17:05)
[2020-09-14 17:43] LABS: HEMATOCRIT 46.2 % (32.4-45.2); HEMOGLOBIN 15.5 GM/dl (10.7-15.3); MCH 30.9 pg (25.7-33.7); MCHC 33.5 g/dl (32.0-36.0); MEAN CELL VOLUME 92.3 fl (80-96); MEAN PLT VOLUME 8.8 fl (7.5-11.1); PLATELET COUNT 232 K/MM3 (134-434)
[2020-09-14] MEDS ORDERED: ACETAMINOPHEN INJECTION 100 ML IVPB ONE (17:50)
[2020-09-14] MEDS ORDERED: AZITHROMYCIN IVPB 500 MG in DEXTROSE 5%-WATER - 250 ML IVPB ONE (17:50)
[2020-09-14] MEDS ORDERED: CEFTRIAXONE 1,000 MG in DEXTROSE 5%-WATER - 50 ML IVPB ONE (17:50)
[2020-09-14] MEDS ORDERED: METOCLOPRAMIDE HCL INJECTION 10 MG/2 ML VIAL ONE (17:50)
[2020-09-14 17:57] LABS: ALBUMIN 3.8 g/dl (3.4-5.0); BILIRUBIN,TOTAL 1.1 mg/dl (0.2-1); CALCIUM 9.1 mg/dl (8.5-10); CREATININE 0.9 mg/dl (0.55-1.3); TOT PROT 7.1 g/dl (6.4-8.2)
[2020-09-14] MEDS ORDERED: cefTRIAXone SODIUM 1 GM VIAL ONE (18:01)
[2020-09-14] MEDS ORDERED: AZITHROMYCIN 500 MG VIAL IVPB ONE (18:08)
[2020-09-14 18:59] LABS: N-TERMINAL BNP 137.9 pg/ml (5-125)
[2020-09-14 20:32] VITALS: BP 160/99; PULSE 88; TEMP 99.1
[2020-09-14 22:51] LABS: PLATELET ESTIMATE ADEQUATE
== END 2020-09-14 20:34 | disposition home or self-care (01) ==
LOC: FER 16:41
PROC: 3E0333Z Introduction of Anti-inflammatory into Peripheral Vein, Percutaneous Approach (ICD-10-PCS; principal; 2020-09-14)
PROC: 3E03329 Introduction of Other Anti-infective into Peripheral Vein, Percutaneous Approach (ICD-10-PCS; 2020-09-14)
PROC: 3E03329 Introduction of Other Anti-infective into Peripheral Vein, Percutaneous Approach (ICD-10-PCS; 2020-09-14)
PROC: 3E033GC Introduction of Other Therapeutic Substance into Peripheral Vein, Percutaneous Approach (ICD-10-PCS; 2020-09-14)
DX: J20.9 Acute bronchitis, unspecified (principal); T50.B95A Adverse effect of other viral vaccines, initial encounter
CPT/HCPCS: 36415; 71045-TC-FY; 80053; 83605; 83880; 84484; 85025; 87040; 87804; 93005; 99285-25; C9803; J0131; U0003; U0005